=== PATIENT | male | born 2000 | race Hispanic/Latino ===

== ENCOUNTER 2024-11-02 01:34 | Emergency (ER) | payer SELFPAY ==
[~2024-11-02] VITALS: Ht 188 cm; Wt 113.4 kg
[2024-11-02 02:07] VITALS: TEMP 98.2
[2024-11-02 02:20] LABS: BASOPHILS % 0.4 % (0.0-1.0); EOSINOPHILS % 4.2 % (0.0-6.0); LYMPHOCYTES % 27.4 % (18.0-39.1); MONOCYTES % 9.9 % (4.4-11.3); NEUTROPHILS % 57.7 % (38.7-80.0); RED CELL DISTRIBUTION WIDTH 12.7 % (11.7-14.4)
[2024-11-02 02:43] LABS: EST GLOMERULAR FILTRATION RATE 126.0 ML/MIN (>=60)
[2024-11-02] MEDS ORDERED: PANTOPRAZOLE SO40 MG PO (03:20)
[2024-11-02] MEDS: MAGNESIUM/ALUMINUM/SIMETHICONE 30 ML UDC PO ONE (03:24)
[2024-11-02] MEDS: BELLADONNA ALK/PHENOBARBITAL 5 ML UDC PO ONE (03:24)
[2024-11-02] MEDS: LIDOCAINE VISC 2% SOLN 15 ML UDC PO ONE (03:24)
[2024-11-02 03:31] VITALS: PULSE 52; RESP 16; O2SAT 99
== END 2024-11-02 04:07 | disposition home or self-care (01) ==
LOC: ER 03:09
DX: R10.13 Epigastric pain (principal); K29.70 Gastritis, unspecified, without bleeding; F17.210 Nicotine dependence, cigarettes, uncomplicated
CPT/HCPCS: 36415; 80053; 83690; 85025; 99284; J2470